=== PATIENT | male | born 1970 | race Caucasian/White ===

== ENCOUNTER → 2020-06-23 | Outpatient (CLI) | payer BC ==
[~2020-06-23] MED LIST: OMNIPAQUE 350 MG/ML, 100ML BOTTLE ONE
== END | disposition home or self-care (01) ==
LOC: CFH 12:43
PROVIDERS: ATTEND Internal Medicine Cardiovascular Disease
DX: R07.9 Chest pain, unspecified (principal)
CPT/HCPCS: 75574; Q9967

== ENCOUNTER 2021-01-29 11:09 | Day surgery (SDC) | payer BC ==
[~2021-01-29] VITALS: Ht 180.3 cm; Wt 79.1 kg
[2021-01-29] MEDS ORDERED: FINA5TAB4 PO (12:05)
[2021-01-29] MEDS ORDERED: IBUP-1221 PO (12:06)
[2021-01-29 12:07] VITALS: BP 140/88
[2021-01-29 12:32] LABS: BASOPHILS % (AUTO) 1 % (0-1); EOSINOPHILS % (AUTO) 2 % (1-7); LYMPHOCYTES % (AUTO) 18 % (22-44); MEAN CORPUSCULAR HEMOGLOBIN 29.9 pg (27.5-34.5); MEAN CORPUSCULAR HGB CONC 35.1 g/dL (33.2-36.2); MEAN PLATELET VOLUME 7.6 fL (7.4-10.4); MONOCYTES % (AUTO) 7 % (2-9); NEUTROPHILS % (AUTO) 72 % (42-75); PLATELET COUNT 248 x10^3/uL (130-400); RED BLOOD COUNT 4.91 x10^6/uL (4.38-5.82); RED CELL DISTRIBUTION WIDTH 13.4 % (9.4-14.8)
[2021-01-29 12:43] LABS: MD NO
[2021-01-29 12:45] LABS: ALANINE AMINOTRANSFERASE 35 U/L (12-78); ALBUMIN 4.1 g/dL (3.4-5.0); ANION GAP 3 mmol/L (5-15); CALCIUM 8.9 mg/dL (8.5-10.1); CHLORIDE 111 mmol/L (98-107); CREATININE 1.19 mg/dL (0.7-1.3)
[2021-01-29 12:47] LABS: ALKALINE PHOSPHATASE 136 U/L (45-117); BILIRUBIN,TOTAL 0.4 mg/dL (0.2-1.0); TOTAL PROTEIN 7.5 g/dL (6.4-8.2)
[2021-01-29] MEDS ORDERED: VERAPAMIL 2.5 MG/ML, 2ML ONE (13:49)
[2021-01-29] MEDS ORDERED: FENTANYL PF 100 MCG/2ML ONE (13:49)
[2021-01-29] MEDS ORDERED: HEPARIN 1,000 UNITS/ML, 10ML ONE (13:49)
[2021-01-29] MEDS ORDERED: TICAGRELOR 90 MG TABLET ONE (13:49)
[2021-01-29] MEDS ORDERED: BIVALIRUDIN 250 MG ONE (13:49)
[2021-01-29] MEDS ORDERED: LIDOCAINE-MPF 1%, 5ML ONE (13:49)
[2021-01-29] MEDS ORDERED: MIDAZOLAM 1 MG/ML, 5ML ONE (13:49)
== END 2021-01-29 16:36 | disposition home or self-care (01) ==
LOC: CACL 11:09
PROVIDERS: ATTEND Internal Medicine Cardiovascular Disease
DX: I20.0 Unstable angina (principal); Z79.899 Other long term (current) drug therapy
CPT/HCPCS: 36415; 80053; 85025; 93458; 99156; C1769; C1894; J1644; J2250; J3010; Q9967; 76937; J0583

== ENCOUNTER → 2021-03-08 | Outpatient (CLI) | payer BC, OTHER ==
[~2021-03-08] MED LIST changes: +FINA5TAB4 PO; +IBUP-1221 PO; -OMNIPAQUE 350 MG/ML, 100ML BOTTLE ONE
== END | disposition home or self-care (01) ==
LOC: CVU 09:46
PROVIDERS: ATTEND Internal Medicine Cardiovascular Disease
DX: M79.621 Pain in right upper arm (principal)
CPT/HCPCS: 93931